=== PATIENT | female | born 1950 | race Caucasian/White ===

== ENCOUNTER → 2024-04-13 | Outpatient (CLI) | payer MEDICARE, MEDICAID, SELFPAY ==
--- NOTE | 2024-04-13 | XR_ITS ---
Examination: Right knee 2 views Date and: Standing AP lateral right knee 2 views Exam date and time: April 13, 2024 1303 hours Comparison November 25, 2023 INDICATIONS: Injury to the knee 5 months ago knee pain. FINDINGS: Total right knee replacement Satisfactory alignment Acute fractures mid and inferior patella noted on the lateral view, 9 mm separation of the fracture fragments involving the lower third of the patella IMPRESSION: Comminuted patellar fractures
== END | disposition home or self-care (01) ==
LOC: CDIM 11:09
PROVIDERS: PCP Family Medicine; Referring Provider Orthopaedic Surgery; Visit Provider Orthopaedic Surgery
DX: S82.041A Displaced comminuted fracture of right patella, initial encounter for closed fracture (principal); X58.XXXA Exposure to other specified factors, initial encounter
CPT/HCPCS: 73560

== ENCOUNTER → 2024-08-21 | Outpatient (CLI) | payer MEDICARE, SELFPAY ==
--- NOTE | 2024-08-21 11:30 | XR_ITS ---
Examination: CT right knee, without contrast. 2-D sagittal reconstructions. 2-D coronal reconstructions. 3-D reconstructions. Date and time of exam:August 21, 2024 1218 hours INDICATIONS: Right knee pain beginning December 2023, right knee replacement August 2021 CTDI: vol (mGy):9.09 DLP: (mGycm): Technique: Multiple 1.25 mm axial sections of the right knee without intravenous contrast have been obtained. 2-D sagittal and coronal reconstructions have been obtained. 3-D reconstructions have been obtained. Low dose protocols were performed. One or more of the following dose reduction techniques were used; automated exposure control, adjustment of the mA and/or KV according to patient size, use of iterative reconstruction technique. Findings: Prominent osteopenia Total right knee arthroplasty. Satisfactory alignment No loosening of the prosthetic components No fracture depicted Small knee effusion No patellar dislocation IMPRESSION: Total right knee arthroplasty with satisfactory alignment No fracture No loosening of the prosthetic components
== END | disposition home or self-care (01) ==
PROVIDERS: PCP Orthopaedic Surgery; Referring Provider Orthopaedic Surgery; Visit Provider Orthopaedic Surgery
DX: M25.561 Pain in right knee (principal); G89.29 Other chronic pain; Z96.651 Presence of right artificial knee joint
CPT/HCPCS: 73700